=== PATIENT | male | born 1955 | race Caucasian/White ===

== ENCOUNTER 2018-04-25 20:01 | Emergency (ER) | payer BC ==
[2018-04-25 20:12] VITALS: BP 134/82; PULSE 70; TEMP 98.3; BMI 25.7
--- NOTE | 2018-04-25 21:08 | PDOC ---
History of Present Illness - History of Present Illness Initial Comments: Patient is a 62 year old male with no significant PMHx states that he was cutting zucchini with a mandolin and sliced off the tip of right thumb. Patient unsure of last tetanus. Allergies: penicillins ROS: General: No fevers or chills, no weakness, no weight loss HEENT: No change in vision. No sore throat, No ear pain Cardiovascular: No chest pain or shortness of breath Respiratory:No cough, or wheezing. Gastrointestinal: No nausea, vomiting, diarrhea or constipation, No rectal bleeding Genitourinary: No dysuria, hematuria, or frequency Musculoskeletal: No joint or muscle pain or swelling Neurologic: No headache, vertigo, dizziness or loss of consciousness Psychiatric: No depression Skin: + right thumb laceration. Endocrine: No increased thirst or abnormal weight change Allergic: No skin or latex allergy All other systems reviewed and normal PE: GENERAL: The patient is awake, alert, and fully oriented, in no acute distress. HEAD: Normal with no signs of trauma. EYES: Pupils equal, round and reactive to light, extraocular movements intact, sclera anicteric, conjunctiva clear. EXTREMITIES: Normal range of motion, no edema. NEUROLOGICAL: Normal speech, normal gait. PSYCH: Normal mood, normal affect. SKIN: Total avulsion of the lateral aspect of the right thumb. Size of avulsion is approximately .5 by 1 cm with active bleeding. <Ella Velasquez - Last Filed: 04/25/18 21:14> - General History Source: Patient Exam Limitations: No Limitations - History of Present Illness Initial Comments: A portion of this note was documented by scribe services under my direction. I have reviewed the details of the note, within reason, and agree with the documentation with the following case summary and management plan written by me. Patient treated in the ED. Nursing notes are reviewed and incorporated into the medical decision-making. Vital signs reviewed. 04/25/18 21:35 Assessment and plan: This is a 62-year-old male who cut the lateral portion of the tip of his thumb off using a mandolin. Patient's tetanus was updated The laceration was not able to be sutured due to the sizable it. She discharged home will follow-up with his primary care doctor Procedure note treatment of avulsion laceration of thumb Patient's thumb was turning get it to stop the bleeding then Dermabond was applied to the laceration and Surgicel applied over the Dermabond sterile dressing was placed over that and secured with tape and a bulky finger dressing was placed over that. Patient discharged <Dian Evans I - Last Filed: 04/25/18 21:37> - General Chief Complaint: Injury Stated Complaint: TIP OFF RT THUMB Time Seen by Provider: 04/25/18 20:05 Past History <Ella Velasquez - Last Filed: 04/25/18 21:14> - Past Medical History COPD: No - Suicide/Smoking/Psychosocial Hx Smoking History: Never smoked Have you smoked in the past 12 months: No Information on smoking cessation initiated: No Hx Alcohol Use: No Drug/Substance Use Hx: No <Dian Evans I - Last Filed: 04/25/18 21:37> - Past Medical History Allergies/Adverse Reactions: Allergies Allergy/AdvReac Type Severity Reaction Status Date / Time Penicillins Allergy Unknown Verified 04/25/18 20:02 Home Medications: Ambulatory Orders NK [No Known Home Medication] 04/25/18 Review of Systems - Review of Systems Comments:: 04/25/18 21:14 see HPI <Ella Velasquez - Last Filed: 04/25/18 21:14> *Physical Exam - Vital Signs Last Vital Signs Temp Pulse Resp BP Pulse Ox 98.3 F 70 20 134/82 100 04/25/18 20:02 04/25/18 20:02 04/25/18 20:02 04/25/18 20:02 04/25/18 20:02 - Physical Exam Comments: 04/25/18 21:15 see HPI <Ella Velasquez - Last Filed: 04/25/18 21:14> - Vital Signs Last Vital Signs Temp Pulse Resp BP Pulse Ox 98.3 F 70 20 134/82 100 04/25/18 20:02 04/25/18 20:02 04/25/18 20:02 04/25/18 20:02 04/25/18 20:02 <Dian Evans I - Last Filed: 04/25/18 21:37> Moderate Sedation - Procedure Monitoring Vital Signs: Procedure Monitoring Vital Signs Temperature 98.3 F 04/25/18 20:02 Pulse Rate 70 04/25/18 20:02 Respiratory Rate 20 04/25/18 20:02 Blood Pressure 134/82 04/25/18 20:02 O2 Sat by Pulse Oximetry (%) 100 04/25/18 20:02 <Ella Velasquez - Last Filed: 04/25/18 21:14> - Procedure Monitoring Vital Signs: Procedure Monitoring Vital Signs Temperature 98.3 F 04/25/18 20:02 Pulse Rate 70 04/25/18 20:02 Respiratory Rate 20 04/25/18 20:02 Blood Pressure 134/82 04/25/18 20:02 O2 Sat by Pulse Oximetry (%) 100 04/25/18 20:02 <Dian Evans I - Last Filed: 04/25/18 21:37> *DC/Admit/Observation/Transfer - Attestations Scribe Attestion: 04/25/18 21:15 Documentation prepared by Ella Velasquez, acting as medical planner for Dian Evans MD. <Ella Velasquez - Last Filed: 04/25/18 21:14> <Dian Evans I - Last Filed: 04/25/18 21:37> Diagnosis at time of Disposition: Avulsion of finger tip Qualifiers: Encounter type: initial encounter Qualified Code(s): S61.209A - Unspecified open wound of unspecified finger without damage to nail, initial encounter - Discharge Dispostion Disposition: HOME Condition at time of disposition: Stable - Patient Instructions Additional Instructions: Follow the discharge instructions that the doctor discussed with you keep it dry for 72 hours. You can remove the dressing tomorrow evening but do not remove the last little bit of dressing that is stuck to the wound. After 3-4 days U can start putting bacitracin on the wound and to start softening the dressing that is stuck to it. Return to the emergency department immediately with ANY new, persistent or worsening symptoms. Continue any medications as previously prescribed by your physician. You should follow up with your primary doctor as soon as possible regarding today's emergency department visit. . Please make sure your doctor reviews the results of your emergency evaluation. Thank you for coming to the Emergency Department today for your care. It was a pleasure to see you today. Please note that your evaluation is INCOMPLETE until you follow-up with your doctor.
[2018-04-25] MEDS ORDERED: DIPHTH,PERTUSS(ACELL),TET 0.5 ML DISP.SYRIN IM ONE ×2 (21:18→21:19)
== END 2018-04-25 21:26 | disposition home or self-care (01) ==
LOC: FER 20:01
PROC: 3E0234Z Introduction of Serum, Toxoid and Vaccine into Muscle, Percutaneous Approach (ICD-10-PCS; principal; 2018-04-25)
DX: S61.011A Laceration without foreign body of right thumb without damage to nail, initial encounter (principal); W27.4XXA Contact with kitchen utensil, initial encounter; Y93.G1 Activity, food preparation and clean up; Y92.89 Other specified places as the place of occurrence of the external cause
CPT/HCPCS: 90715; 99281-25

== ENCOUNTER 2019-01-08 18:22 | Inpatient (IN) | payer BC ==
--- NOTE | 2019-01-08 18:28 | PDOC ---
Rapid Medical Evaluation Time Seen by Provider: 01/08/19 18:27 Medical Evaluation: Allergies Allergy/AdvReac Type Severity Reaction Status Date / Time Penicillins Allergy Unknown Verified 04/25/18 20:02 01/08/19 18:27 I have performed a brief in-person evaluation of this patient. The patient presents with a chief complaint of: food stuck in esophagus Pertinent physical exam findings:stable and in NAD, non-focal I have ordered the following: provider to determine The patient will proceed to the ED for further evaluation.
--- NOTE | 2019-01-08 19:50 | PDOC ---
History of Present Illness - General Chief Complaint: Choking Sensation Stated Complaint: FOOD STUCK IN THROAT Time Seen by Provider: 01/08/19 18:27 - History of Present Illness Initial Comments: HPI: 63yo M with no reported PMH presenting with a sensation that food is stuck in this esophagus. Patient states he had pork chops and potatoes last night (about 24 hours ago) and thereafter felt this sensation. Has not been able to tolerate eating or drinking without vomiting. Has been able to control saliva secretions. Has had this sensation before: six year ago, required an emergent endoscopy. Also felt this "a couple times in the past six months," however the food would usually pass on its own or would be vomited up. Presenting now because "this has gone on too long." Does not currently follow with a GI doctor. Does not know if he has esophageal pathology. His mother had this problem and had to have a procedure done. No nausea right now. Denies fevers or chills. PCP: none ROS: Constitutional: no fever, no chills HEENT: no throat pain, +dysphagia Cardiovascular: no chest pain, no palpitations Respiratory: no cough, no shortness of breath Gastrointestinal: no abdominal pain, +vomiting Genitourinary: no dysuria, no hematuria Musculoskeletal: no myalgia, no arthralgia Skin: no rash, no itching Neurologic: no headache, no weakness PE: General: Awake, alert, and fully oriented, in no acute distress Head: No signs of trauma Eyes: EOMI, sclera anicteric ENT: Moist mucus membranes Neck: Normal ROM, supple Lungs: Lungs clear, Normal breath sounds Cardio: Regular rhythm, S1 and S2 present Abdomen: Soft, nontender. No guarding, no rebound, no masses Extremities: Normal range of motion, Distal pulses present SKIN: Warm, Dry, normal turgor Neurologic: Cranial nerves II through XII grossly intact. Normal speech ED Course/MDM: DDX including but not limited to food impaction, globus sensation, esophagitis, esophageal stricture, achalasia Pre-op labs GI consult Glucagon Fluids Patient declined pain medication as he is not in pain 01/08/19 19:[address] Fausto Soriano, GI, who recommends admission and endoscopy for patient tomorrow. Unsure of when the procedure will take place as Dr. Soriano will contact the on-call physician. Patient reluctant to stay overnight in the hospital. Will discuss admission again in about ten minutes after patient has taken some time to think about it. 01/08/19 21:08 Patient amenable to transfer as long as the procedure will be performed yaneth kaur will contact the transfer center 01/08/19 21:29 Discussed case, Dr. Powers, GI fellow at [place] No indication for emergent endoscopy; she will talk to her attending and notify the transfer center Patient is of sound mind and has capacity to make decisions. Benefits/risks explained to patient and he voiced understanding. Patient decided to refuse transfer Transfer cancelled 01/08/19 21:[address] Woods who accepted patient for admission under Dr. Carroll 01/08/19 22:08 EKG, rate 63, QTc 478, RBBB, twi in inferior and lateral distribution (no prior EKGs available) Chest: Chest pain. Possible foreign body 2 views of the chest reveal clear well aerated lungs, old apical pleural thickening, normal mediastinum and sharp angles. The bones and soft tissues are intact. Since 05/27/2009 there is no change of an adverse nature. There is no sign of infiltrate, failure or pneumothorax. A foreign body is not seen. Correlation recommended. Impression : No acute chest pathology. Past History - Past Medical History Allergies/Adverse Reactions: Allergies Allergy/AdvReac Type Severity Reaction Status Date / Time Penicillins Allergy Unknown Verified 01/08/19 18:29 Home Medications: Ambulatory Orders NK [No Known Home Medication] 04/25/18 COPD: No - Psycho Social/Smoking Cessation Hx Smoking History: Never smoked Have you smoked in the past 12 months: No Hx Alcohol Use: No Drug/Substance Use Hx: No *Physical Exam - Vital Signs Last Vital Signs Temp Pulse Resp BP Pulse Ox 98 F 78 18 133/91 98 01/08/19 18:26 01/08/19 18:26 01/08/19 18:26 01/08/19 18:26 01/08/19 18:26 ED Treatment Course - LABORATORY CBC & Chemistry Diagram: 01/09/19 08:00 01/09/19 08:00 Discharge - Discharge Information Problems reviewed: Yes Clinical Impression/Diagnosis: Food impaction of esophagus Condition: Improved - Admission Yes - Follow up/Referral - Patient Discharge Instructions - Post Discharge Activity
--- NOTE | 2019-01-08 19:58 | PDOC ---
Attending Attestation - Resident Resident Name: Sravani Baker - ED Attending Attestation I have performed the following: I have examined & evaluated the patient, The case was reviewed & discussed with the resident, I agree w/resident's findings & plan - HPI HPI: 01/08/19 21:44 see resident hpi - Physicial Exam PE: 01/08/19 21:44 agree with resident exam - Medical Decision Making 01/08/19 21:45 63-year-old male with foreign body sensation after eating pork chops unable to tolerate liquids Patient has some improvement after glucagon GI in-house contacted who agreed to see patient for endoscopy in the morning Call being placed to [facility] to attempt arrangements for endoscopy tonight If not patient would prefer to stay in-house EKG shows a sinus rhythm at 65 bpm with a right bundle branch block There are ST/T wave abnormalities in V3 through V6, possibly related to conduction delay No old is available Troponin added on as well
[2019-01-08] MEDS ORDERED: SODIUM CHLORIDE 1,000 ML IV STA (20:16)
[2019-01-08] MEDS ORDERED: GLUCAGON 1 MG KIT IVPUSH ONE (20:17)
[2019-01-08 20:41] LABS: BASO % 0.4 % (0-2.0); EOS % 3.9 % (0-4.5); HEMATOCRIT 48.3 % (35.4-49); HEMOGLOBIN 15.8 GM/dL (11.7-16.9); LYMPH % 27.1 % (8-40); MCH 31.6 pg (25.7-33.7); MCHC 32.8 g/dl (32.0-35.9); MEAN CELL VOLUME 96.4 fl (80-96); MEAN PLT VOLUME 9.6 fl (7.5-11.1); MONO % 8.6 % (3.8-10.2); PLATELET COUNT 175 K/MM3 (134-434); RBC 5.01 M/mm3 (4.00-5.60); RDW 13.1 % (11.9-15.9); WHITE BLOOD COUNT 7.6 K/mm3 (4.0-10.0)
[2019-01-08] MEDS ORDERED: GlUCAGON HUMAN RECOMBINANT 1 MG/VIAL ONE (21:04)
[2019-01-08 21:05] LABS: ALBUMIN 3.9 g/dl (3.4-5.0); ALK PHOS 67 U/L (45-117); ANION GAP 6 MMOL/L (8-16); BILIRUBIN,TOTAL 1.1 mg/dL (0.2-1); BLOOD UREA NITROGEN 12.9 mg/dL (7-18); CALCIUM 9.2 mg/dL (8.5-10.1); CHLORIDE 109 mmol/L (98-107); CO2 27 mmol/L (21-32); GLUCOSE,RANDOM 70 mg/dL (74-106); POTASSIUM 4.1 mmol/L (3.5-5.1); SGOT/AST 22 U/L (15-37); SGPT/ALT 33 U/L (13-61); SODIUM 142 mmol/L (136-145)
[2019-01-08 21:08] LABS: INR 0.97 (0.83-1.09); PROTHROMBIN TIME (PATIENT) 11.5 SEC (9.7-13.0)
[2019-01-08 21:11] LABS: ACTIVATED PTT 35.2 SECONDS (25.2-36.5)
--- NOTE | 2019-01-08 22:26 | HP ---
CHIEF COMPLAINT: Inability to swallow PCP: None HISTORY OF PRESENT ILLNESS: 63 y/o male with no reported PMH c/o food being stuck in his throat. Pt states that yesterday evening (07 Jan 2019) he was eating rapidly, chewing poorly/ infrequently, and swallowed a large amount of food at once. He did not choke but had the sensation of incomplete swallowing. He attempted heaving and expelled some masticated food but that sensation of stuck food persisted. He is able to tolerated some liquids but experiences an incomplete swallow of liquids as well. 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 Similar occurrences take place during the year but self-resolve. He denies CP, SOB, NVFD. ER course was notable for: (1) EKG significant for abnormal T waves (2) Case discussed with Dr. Fausto Soriano, GI, whom recommends admission and endoscopy for patient tomorrow (3) Glucagon administered Recent Travel: Denies PAST MEDICAL HISTORY: Denies PAST SURGICAL HISTORY: Denies Family history: Father Hep C, Mother with similar dysphagia symptoms Social History: Smoking: denies Alcohol: social Drugs: denies Allergies Penicillins Allergy (Unknown, Verified 01/08/19 18:29) anaphylaxis Seasonal allergies HOME MEDICATIONS: Home Medications Medication Instructions Recorded NK [No Known Home Medication] 04/25/18 REVIEW OF SYSTEMS CONSTITUTIONAL: Absent: fever, chills, diaphoresis, generalized weakness, malaise, loss of appetite, weight change HEENT: Absent: rhinorrhea, nasal congestion, throat pain, throat swelling, difficulty swallowing, mouth swelling, ear pain, eye pain, visual changes CARDIOVASCULAR: Absent: chest pain, syncope, palpitations, irregular heart rate, lightheadedness , peripheral edema RESPIRATORY: Absent: cough, shortness of breath, dyspnea with exertion, orthopnea, wheezing, stridor, hemoptysis GASTROINTESTINAL: Absent: abdominal pain, abdominal distension, nausea, vomiting, diarrhea, constipation, melena, hematochezia GENITOURINARY: Absent: dysuria, frequency, urgency, hesitancy, hematuria, flank pain, genital pain MUSCULOSKELETAL: Absent: myalgia, arthralgia, joint swelling, back pain, neck pain SKIN: Absent: rash, itching, pallor HEMATOLOGIC/IMMUNOLOGIC: Absent: easy bleeding, easy bruising, lymphadenopathy, frequent infections ENDOCRINE: Absent: unexplained weight gain, unexplained weight loss, heat intolerance, cold intolerance NEUROLOGIC: Absent: headache, focal weakness or paresthesias, dizziness, unsteady gait, seizure, mental status changes, bladder or bowel incontinence PSYCHIATRIC: Absent: anxiety, depression, suicidal or homicidal ideation, hallucinations. PHYSICAL EXAMINATION Vital Signs - 24 hr 01/08/19 18:26 Temperature 98 F Pulse Rate 78 Respiratory 18 Rate Blood Pressure 133/91 O2 Sat by Pulse 98 Oximetry (%) GENERAL: AOx3, in no acute distress. HEAD: NCAT EYES: KAYODE, EOMI, conjunctiva clear. ENT: Normal tongue morphology, no food in oral cavity, no swellings/masses/ obstructions. Ears normal, nares patent, oropharynx clear without exudates. Moist mucous membranes. NECK: Normal range of motion, supple without lymphadenopathy, JVD, or masses. LUNGS: CTAB. No wheezes, and no crackles. No accessory muscle use. HEART: RRR s1 s2 ABDOMEN: Soft, BS present in all 4 quadrants, non-distended, no JVD, MUSCULOSKELETAL: No bony deformities or tenderness. No CVA tenderness. UPPER EXTREMITIES: 2+ pulses, warm, well-perfused. No cyanosis. No clubbing. No peripheral edema. LOWER EXTREMITIES: 2+ pulses, warm, well-perfused. No calf tenderness. No peripheral edema. NEUROLOGICAL: Cranial nerves II-XII intact. Normal speech. Gait not appreciated. PSYCHIATRIC: Cooperative. Good eye contact. Appropriate mood and affect. SKIN: Warm, dry, normal turgor, no rashes or lesions noted, normal capillary refill. Laboratory Results - last 24 hr 01/08/19 01/08/19 01/08/19 20:30 20:30 20:30 WBC 7.6 RBC 5.01 Hgb 15.8 Hct 48.3 MCV 96.4 H MCH 31.6 MCHC 32.8 RDW 13.1 Plt Count 175 MPV 9.6 Absolute Neuts (auto) 4.6 Neutrophils % 60.0 Lymphocytes % 27.1 Monocytes % 8.6 Eosinophils % 3.9 Basophils % 0.4 Nucleated RBC % 0 PT with INR 11.50 INR 0.97 PTT (Actin FS) 35.2 Sodium 142 Potassium 4.1 Chloride 109 H Carbon Dioxide 27 Anion Gap 6 L BUN 12.9 Creatinine 1.0 Est GFR (CKD-EPI)AfAm 93.08 Est GFR (CKD-EPI)NonAf 80.31 Random Glucose 70 L Calcium 9.2 Total Bilirubin 1.1 H AST 22 ALT 33 Alkaline Phosphatase 67 Creatine Kinase 113 Troponin I < 0.02 Total Protein 7.0 Albumin 3.9 ASSESSMENT/PLAN: 63 y/o male with no reported PMH c/o food being stuck in his throat 2/2 mechanical impaction/poor mastication. A similar instance occurred in 2011, which resulted in need for disimpaction. # Food bolus impaction - Hydrate D5W - NPO - Follow GI recommendations (possible manometry/motility studies) # EKG abnormalities - Asymptomatic - T wave abnormalities - Repeat EKG in AM - Trop neg x1, f/u second trop #F/E/N - NS - Cont. to monitor - Regular diet # DVT prophylaxis - Heparin SQ # Disposition - Admit to med/surg Curt Campbell MD Visit type - Emergency Visit Emergency Visit: Yes ED Registration Date: 01/08/19 Care time: The patient presented to the Emergency Department on the above date and was hospitalized for further evaluation of their emergent condition. - New Patient This patient is new to me today: Yes Date on this admission: 01/09/19 - Critical Care Critical Care patient: No ATTENDING PHYSICIAN STATEMENT I saw and evaluated the patient. I reviewed the resident's note and discussed the case with the resident. I agree with the resident's findings and plan as documented. SUBJECTIVE: OBJECTIVE: ASSESSMENT AND PLAN:
[2019-01-08] MEDS: DEXTROSE 5%-NORMAL SALINE 1,000 ML IV SCH (22:59)
[2019-01-09] MEDS: HEPARIN NA (PORCINE) 5,000 UNITS/ML 1ML VIAL SQ SCH ×3 (00:05→15:37)
[2019-01-09 00:13] LABS: BILIRUBIN,DIRECT 0.2 mg/dL (0.0-0.2)
--- NOTE | 2019-01-09 00:49 | PN ---
Teaching Attending Note Name of Resident: Curt Campbell ATTENDING PHYSICIAN STATEMENT I saw and evaluated the patient. I reviewed the resident's note and discussed the case with the resident. I agree with the resident's findings and plan as documented. SUBJECTIVE: 63-year-old man with foreign body sensation after eating pork chops About 24 hours prior to presentation, unable to tolerate liquids, suspect food particle stuck in the esophagus. GI was contacted and agreed for endoscopy in the a.m. There is no need for emergent endoscopy overnight. Patient reported similar episode occurred 7 years ago patient needed EGD performed at that time for food disimpaction. Since then he reports food stuck in his esophagus about twice a year however did not repeat EGDs. OBJECTIVE: Last Vital Signs Temp Pulse Resp BP Pulse Ox 98.7 F 59 L 18 141/87 98 01/08/19 23:57 01/08/19 23:57 01/08/19 23:57 01/08/19 23:57 01/08/19 23:19 GENERAL: Well developed, well nourished. Awake and alert. No acute distress. HEENT: Normocephalic, atraumatic. PERRLA, EOMI. No conjunctival pallor. Sclera are non- icteric. Moist mucous membranes. Oropharynx is clear. NECK: Supple. Full ROM. No JVD. Carotid pulses 2+ and symmetric, without bruits. No thyromegaly. No lymphadenopathy. CARDIOVASCULAR: Regular rate and rhythm. No murmurs, rubs, or gallops. Distal pulses are 2+ and symmetric. PULMONARY: No evidence of respiratory distress. Lungs clear to auscultation bilaterally. No wheezing, rales or rhonchi. ABDOMINAL: Soft. Non-tender. Non-distended. No rebound or guarding. No organomegaly. Normoactive bowel sounds. MUSCULOSKELETAL Normal range of motion at all joints. No bony deformities or tenderness. No CVA tenderness. EXTREMITIES: No cyanosis. No clubbing. No edema. No calf tenderness. SKIN: Warm and dry. Normal capillary refill. No rashes. No jaundice. PSYCHIATRIC: Cooperative. Good eye contact. Appropriate mood and affect. Abnormal Lab Results 01/08/19 01/08/19 20:30 20:30 MCV 96.4 H Chloride 109 H Anion Gap 6 L Random Glucose 70 L Total Bilirubin 1.1 H Imaging reviewed ASSESSMENT AND PLAN: Suspected esophageal food impaction. Do not suspect perforation of esophagus at this time. Patient is clinically and hemodynamically stable at this time. GI contacted and aware. Admit to [facility] follow-up IV fluid hydration Monitor vital signs closely Heparin subcutaneously for DVT prophylaxis
[2019-01-09 03:25] VITALS: BMI 26.0
[2019-01-09] MEDS: DEXTROSE 5%-NORMAL SALINE 1,000 ML IV SCH (06:23)
[2019-01-09 09:09] LABS: HEMOGLOBIN 14.8 GM/dL (11.7-16.9); MCH 32.5 pg (25.7-33.7); MCHC 33.6 g/dl (32.0-35.9); MEAN CELL VOLUME 96.7 fl (80-96); MEAN PLT VOLUME 10.1 fl (7.5-11.1); PLATELET COUNT 163 K/MM3 (134-434); RBC 4.56 M/mm3 (4.00-5.60); RDW 13.4 % (11.9-15.9); WHITE BLOOD COUNT 5.1 K/mm3 (4.0-10.0)
[2019-01-09 09:39] LABS: CALCIUM 8.3 mg/dL (8.5-10.1); CREATININE 0.9 mg/dL (0.55-1.3); MAGNESIUM 2.7 mg/dL (1.8-2.4); PHOSPHOROUS 2.6 mg/dL (2.5-4.9); POTASSIUM 3.9 mmol/L (3.5-5.1)
--- NOTE | 2019-01-09 10:25 | CONSULT ---
Admitting History and Physical - Primary Care Physician PCP: Dmitriy Lemos - Admission History of Present Illness: 63-year-old man with foreign body sensation after eating potatoe ,was unable to tolerate liquids, suspect food particle stuck in the esophagus. Patient reported similar episode occurred 7 years ago patient needed EGD performed at that time for food disimpaction at [facility]. Since then he reports food stuck in his esophagus about twice a year however did not repeat EGDs. Pt was NPO, pending endoscopy today. However, pt felt that the impaction passed and he was able to tolerate liquids for breakfast. Selected Entries 01/08/19 01/08/19 01/09/19 18:26 23:57 02:00 Temperature 98 F 98.7 F 98.3 F 01/09/19 06:30 Temperature 98.5 F Laboratory Tests 01/08/19 01/09/19 20:30 08:00 WBC 7.6 5.1 Pt reports food impactions have been more frequent, every 3 months, usually when he rushes. He denies reflux/smoking/drinks socially. He drinks 3 coffees daily, no soda, occasional tomatoes, spicy foods but feels he can eat anything without reflux. He has dinner at 7, and stays upright until bedtime at 11. History Source: Patient, Medical Record Limitations to Obtaining History: No Limitations - Smoking History Smoking history: Never smoked Have you smoked in the past 12 months: No - Alcohol/Substance Use Hx Alcohol Use: No History - Admission Reason For Visit: FOOD INPACTION OF ESOPHAGUS, DYSPHAGIA - Diagnostics X-ray: Report Reviewed - General Mental Status: Alert and Oriented, Awake and Alert, Able to Follow Commands Attention: Intact Ability to Follow Directions: Excellent Head/Neck Control: WFL - Hearing Hearing: Normal Speech Evaluation - Communication Primary Language: GREEK Communication: Yes: Within Normal Limits Oral Expression Ability: Yes: No Impairment - Speech Production Able to Make Needs Known: Yes: WNL Intelligibility: Yes: WNL - Speech Characteristics Voice Loudness: Normal Voice Pitch: Yes: Normal Voice Phonatory-based Quality: Yes: Normal Speech Pattern: Normal Speech Clarity: < 100% Nasal Resonance: Normal Articulation: Yes: Precise Rate of Speech: Intact - Language/Auditory Comprehension Follows: Yes: 2 Stage Simple Commands - Language/Verbal Expression Able to Respond to Simple Queries: Yes: WNL Able to Communicate Wants and Needs: Yes: WNL Functional Communication Status: Yes: WNL - Memory/Perception lobsterman Memory: Yes: WNL Short Term Memory: Yes: WNL - Swallow Evaluation/Bedside Assessment Current Nutritional Intake: Clear Liquids Oral Secretions: Yes: WFL Dentition: Yes: Adequate Facial Symmetry at Rest: Symmetrical Facial Symmetry on Retraction: Symmetrical Facial Movement: Controlled Sensation: Normal Against Resistance Opening: Normal Against Resistance Closing: Normal Pucker Lips: Normal Smile: Normal Lingual Movement: Normal, Symmetric Lingual Speed of Movement: Normal Lingual Movement Strgth Against Opposition: Normal Lingual Movement Characteristics: Normal Soft Palate Description: Normal Color, Normal Symmetry Hard Palate Description: Normal Color, Normal Symmetry Velopharyngeal Movement: Normal Laryngeal Elevation: WFL Laryngeal Movement: Able to Palpate Rate of Intake: WFL Bolus Size: WFL Labial Seal: WFL Chewing: WFL Oral Prep Time: WFL A-P Transit: WFL Pocketing: None Timing of Swallow: WFL Coughing/Throat Clear: No Change in Voice: No Recommendations - Speech Evaluation, Impression/Plan Impression: Pt with recurrent food impaction, increasing in frequency. Tolerating clear liquids at this time. r/o esophageal dysphagia- Schatzki's ring,stricture,dysmotility,eosinophilic esophagitis, pathology. - Dysphagia Impressions/Plan Dysphagia Treatment Plan: Other (educated pt on soft, moist foods, small bites, chew well, alternate with sips of liquid, GERD precautions.) Recommendations: GI Consult (f/u out pt)
--- NOTE | 2019-01-09 10:37 | EKG ---
Test Reason : Blood Pressure : / mmHG Vent. Rate : 063 BPM Atrial Rate : 063 BPM P-R Int : 180 ms QRS Dur : 140 ms QT Int : 468 ms P-R-T Axes : 042 024 -32 degrees QTc Int : 478 ms SINUS RHYTHM WITH PREMATURE ATRIAL COMPLEXES RIGHT BUNDLE BRANCH BLOCK CANNOT RULE OUT INFERIOR INFARCT , AGE UNDETERMINED T WAVE ABNORMALITY, CONSIDER LATERAL ISCHEMIA ABNORMAL ECG NO PREVIOUS ECGS AVAILABLE Confirmed by NAGA MINA, ANTWAN ([id number]) on 01/09/2019 10:36:37 AM Referred By: Confirmed By:ANTWAN NIELSON MD
--- NOTE | 2019-01-09 10:59 | CON.GI ---
Consult Consult Specialty:: Gastroenterology Referred by:: Dr. Carroll Reason for Consultation:: Food bolus - History of Present Illness History of Present Illness: 63yo male presenting with food bolus after eating piece of pork 2 days ago. Pt reports eating piece of pork on Monday evening, noted burning and sensation of food sticking in mid substernal region, attempted to regurgitate however unable. Had water and coffee the following morning however unable to tolerate prompting ED evaluation yesterday. Reports similar episode 7 years ago requiring endoscopic disimpaction. Otherwise report 2-3 episodes a year usually when eating meat, though usually regurgitates back up. Denies dysphagia to liquids, heartburn or abdominal pain. Pt received glucagon in ED. Overnight states sensation of sticking resolved. Currently feeling well, tolerating own secretions, denies chest discomfort, burning, sob or abdominal pain. Tolerated cup of water this am. - History Source History Provided By: Patient - Alcohol/Substance Use Hx Alcohol Use: No - Smoking History Smoking history: Never smoked Have you smoked in the past 12 months: No Home Medications - Allergies Allergies/Adverse Reactions: Allergies Allergy/AdvReac Type Severity Reaction Status Date / Time Penicillins Allergy Unknown Verified 01/08/19 18:29 - Home Medications Home Medications: Ambulatory Orders NK [No Known Home Medication] 04/25/18 Review of Systems - Review of Systems Constitutional: reports: No Symptoms Cardiovascular: reports: No Symptoms Respiratory: reports: No Symptoms Gastrointestinal: reports: No Symptoms Musculoskeletal: reports: No Symptoms Physical Exam-GI Vital Signs: Vital Signs Temperature 98.5 F 01/09/19 06:30 Pulse Rate 57 L 01/09/19 06:30 Respiratory Rate 18 01/09/19 06:30 Blood Pressure 114/70 01/09/19 06:30 O2 Sat by Pulse Oximetry (%) 98 01/08/19 23:19 Constitutional: Yes: Well Nourished, No Distress, Calm HENT: Yes: WNL, Atraumatic, Normocephalic Cardiovascular: Yes: WNL, Regular Rate and Rhythm Respiratory: Yes: WNL, Regular, CTA Bilaterally ...Palpate: Yes: Other (Abd soft, nt, nd) Labs: CBC, BMP 01/09/19 08:00 01/09/19 08:00 INR, PTT INR 0.97 (0.83-1.09) 01/08/19 20:30 Imaging - Results Chest X-ray: Report Reviewed, Image Reviewed Problem List - Problems (1) Food impaction of esophagus Assessment/Plan: 63yo male presenting with suspected food bolus impaction after eating piece of pork 2 days ago with burning discomfort and sensation of food sticking, now resolved. Speaking in full sentences, tolerating own secretions and water this am. -No indication for emergent EGD currently as food bolus appears to have passed -Discussed elective EGD to further evaluate including r/o stricture, ring, eosinophilic esophagitis. Pt currently anxious to leave and prefers outpt follow up. -Resume clear liquid diet this am advance as tolerated -Strongly advised to chew carefully and take small bites -Recommend outpt GI follow up in 1-2 weeks Discussed with medicine resident. Please recall GI if further questions in the interim. Code(s): T18.128A - FOOD IN ESOPHAGUS CAUSING OTHER INJURY, INITIAL ENCOUNTER Qualifiers: Encounter type: initial encounter Qualified Code(s): T18.128A - Food in esophagus causing other injury, initial encounter
--- NOTE | 2019-01-09 13:53 | PN ---
Teaching Attending Note Name of Resident: Subhash Berman ATTENDING PHYSICIAN STATEMENT I saw and evaluated the patient. I reviewed the resident's note and discussed the case with the resident. I agree with the resident's findings and plan as documented. SUBJECTIVE: Pain resolved, tolerating clear liquid diet - no nausea/vomiting/ regurgitation. No abdominal pain/diarrhea. No fever/chills. OBJECTIVE: Afebrile, Hemodynamically Stable. Last Vital Signs Temp Pulse Resp BP Pulse Ox 98.5 F 57 L 18 139/87 97 01/09/19 09:00 01/09/19 09:00 01/09/19 09:00 01/09/19 09:00 01/09/19 09:00 HEENT - Atraumatic, Normocephalic Heart - S1 S2, RRR Lungs -clear to auscultation. Abdomen - Soft, non-tender. Bowel Sounds normal. Extremities -no edema, no calf tenderness Laboratory Results - last 24 hr 01/08/19 01/08/19 01/08/19 20:30 20:30 20:30 WBC 7.6 RBC 5.01 Hgb 15.8 Hct 48.3 MCV 96.4 H MCH 31.6 MCHC 32.8 RDW 13.1 Plt Count 175 MPV 9.6 Absolute Neuts (auto) 4.6 Neutrophils % 60.0 Lymphocytes % 27.1 Monocytes % 8.6 Eosinophils % 3.9 Basophils % 0.4 Nucleated RBC % 0 PT with INR 11.50 INR 0.97 PTT (Actin FS) 35.2 Sodium 142 Potassium 4.1 Chloride 109 H Carbon Dioxide 27 Anion Gap 6 L BUN 12.9 Creatinine 1.0 Est GFR (CKD-EPI)AfAm 93.08 Est GFR (CKD-EPI)NonAf 80.31 Random Glucose 70 L Calcium 9.2 Phosphorus Magnesium Total Bilirubin 1.1 H Direct Bilirubin 0.2 AST 22 ALT 33 Alkaline Phosphatase 67 Creatine Kinase 113 Troponin I < 0.02 Total Protein 7.0 Albumin 3.9 01/09/19 01/09/19 01/09/19 08:00 08:00 08:00 WBC 5.1 RBC 4.56 Hgb 14.8 Hct 44.0 MCV 96.7 H MCH 32.5 MCHC 33.6 RDW 13.4 Plt Count 163 MPV 10.1 Absolute Neuts (auto) Neutrophils % Lymphocytes % Monocytes % Eosinophils % Basophils % Nucleated RBC % PT with INR INR PTT (Actin FS) Sodium 143 Potassium 3.9 Chloride 112 H Carbon Dioxide 24 Anion Gap 7 L BUN 13.0 Creatinine 0.9 Est GFR (CKD-EPI)AfAm 105.72 Est GFR (CKD-EPI)NonAf 91.22 Random Glucose 79 Calcium 8.3 L Phosphorus 2.6 Magnesium 2.7 H Total Bilirubin Direct Bilirubin AST ALT Alkaline Phosphatase Creatine Kinase Troponin I < 0.02 Total Protein Albumin Current Medications Generic Name Dose Route Start Last Admin Trade Name Freq PRN Reason Stop Dose Admin Heparin Sodium (Porcine) 5,000 unit 01/08/19 22:15 01/09/19 05:33 Heparin - SQ Not Given TID MATTHEW Dextrose/Sodium Chloride 1,000 mls @ 83 mls/hr 01/08/19 22:15 01/09/19 06:23 D5-Ns - IV 83 mls/hr ASDIR MATTHEW Administration Home Medications Medication Instructions Recorded NK [No Known Home Medication] 04/25/18 ASSESSMENT AND PLAN: 63 year old male with history of esophageal food impaction requiring EGD and dilatation, presents with globus sensation after eating pork and potatoes. progressed to inability to swallow even liquids. Symptoms now resolved. 1. Esophageal Food Impaction - resolved. Tolerating clears now. Evaluated by GI - for advancement of diet and out-patient GI referral for EGD in 1-2 weeks. Cleared for discharge by GI with out-patient follow up.
--- NOTE | 2019-01-09 15:06 | EKG ---
Test Reason : Blood Pressure : / mmHG Vent. Rate : 060 BPM Atrial Rate : 060 BPM P-R Int : 170 ms QRS Dur : 136 ms QT Int : 470 ms P-R-T Axes : 030 -03 005 degrees QTc Int : 470 ms NORMAL SINUS RHYTHM RIGHT BUNDLE BRANCH BLOCK ABNORMAL ECG WHEN COMPARED WITH ECG OF 09-JAN-2019 10:22, T WAVE INVERSION NO LONGER EVIDENT IN INFERIOR LEADS NONSPECIFIC T WAVE ABNORMALITY NO LONGER EVIDENT IN LATERAL LEADS Confirmed by ANTWAN NIELSON MD ([id number]) on 01/09/2019 3:06:04 PM [facility] Confirmed By:ANTWAN NIELSON MD
[2019-01-09 15:58] VITALS: BP 127/85; PULSE 65; TEMP 98.8
--- NOTE | 2019-01-09 16:16 | DS ---
Physical Exam: SUBJECTIVE: Patient seen and examined at the bedside. Patient stated that he felt better, stated that the sensation of food being stuck in his esophagus improved and he was able to tolerate liquids well. Denied aspiration of gastric contents, halitosis, reflux symptoms. Denied chest pain, sob, abdominal pain, n/ v/c/d, fever, chills. Was eager to be discharged. Today spoke with GI and was recommended to follow up outpatient as there is no emergent need for endoscopy. OBJECTIVE: Vital Signs Period Temp Pulse Resp BP Sys/Avalos Pulse Ox Last 24 Hr 98 F-98.8 F 57-78 18-18 114-152/70-95 97-98 PHYSICAL EXAM GENERAL: AOx3, in no acute distress. HEAD: NCAT EYES: KAYODE, EOMI, conjunctiva clear. ENT: Normal tongue morphology, no food in oral cavity, no swellings/masses/ obstructions.Oropharynx clear without exudates. Moist mucous membranes. NECK: Normal range of motion, supple without lymphadenopathy, JVD, or masses. LUNGS: Clear to auscultation bilaterally. No wheezes, and no crackles. No accessory muscle use. HEART: Regular rate and rhythm, no murmurs or rubs. ABDOMEN: Soft, non-tender, BS present in all 4 quadrants, non-distended MUSCULOSKELETAL: No bony deformities or tenderness. UPPER EXTREMITIES: 2+ pulses, warm, well-perfused. No cyanosis. No clubbing. No peripheral edema. LOWER EXTREMITIES: 2+ pulses, warm, well-perfused. No calf tenderness. No peripheral edema. NEUROLOGICAL: Cranial nerves II-XII intact. 5/5 muscle strength bilaterally upper and lower extremities. PSYCHIATRIC: Cooperative. Good eye contact. Appropriate mood and affect. SKIN: Warm, dry, normal turgor, no rashes or lesions noted, normal capillary refill. LABS Laboratory Results - last 24 hr 01/08/19 01/08/19 01/08/19 20:30 20:30 20:30 WBC 7.6 RBC 5.01 Hgb 15.8 Hct 48.3 MCV 96.4 H MCH 31.6 MCHC 32.8 RDW 13.1 Plt Count 175 MPV 9.6 Absolute Neuts (auto) 4.6 Neutrophils % 60.0 Lymphocytes % 27.1 Monocytes % 8.6 Eosinophils % 3.9 Basophils % 0.4 Nucleated RBC % 0 PT with INR 11.50 INR 0.97 PTT (Actin FS) 35.2 Sodium 142 Potassium 4.1 Chloride 109 H Carbon Dioxide 27 Anion Gap 6 L BUN 12.9 Creatinine 1.0 Est GFR (CKD-EPI)AfAm 93.08 Est GFR (CKD-EPI)NonAf 80.31 Random Glucose 70 L Calcium 9.2 Phosphorus Magnesium Total Bilirubin 1.1 H Direct Bilirubin 0.2 AST 22 ALT 33 Alkaline Phosphatase 67 Creatine Kinase 113 Troponin I < 0.02 Total Protein 7.0 Albumin 3.9 01/09/19 01/09/19 01/09/19 08:00 08:00 08:00 WBC 5.1 RBC 4.56 Hgb 14.8 Hct 44.0 MCV 96.7 H MCH 32.5 MCHC 33.6 RDW 13.4 Plt Count 163 MPV 10.1 Absolute Neuts (auto) Neutrophils % Lymphocytes % Monocytes % Eosinophils % Basophils % Nucleated RBC % PT with INR INR PTT (Actin FS) Sodium 143 Potassium 3.9 Chloride 112 H Carbon Dioxide 24 Anion Gap 7 L BUN 13.0 Creatinine 0.9 Est GFR (CKD-EPI)AfAm 105.72 Est GFR (CKD-EPI)NonAf 91.22 Random Glucose 79 Calcium 8.3 L Phosphorus 2.6 Magnesium 2.7 H Total Bilirubin Direct Bilirubin AST ALT Alkaline Phosphatase Creatine Kinase Troponin I < 0.02 Total Protein Albumin HOSPITAL COURSE: Miguel Kang is a 63 year old male with no significant past medical history who presented with complaints of food stuck in his throat. The patient noted that he has had sensations like this in the past most severely 7 years prior for which he required an endoscopy. Patient was unable to tolerate liquids well. He was given Glucagon and IV hydration on the night of admission. Patient improved overnight and was able to tolerate clear liquid diet and had a good swallow. Patient was seen by GI and was told to follow up outpatient as there is no emergent need for endoscopy. Patient was seen by speech and swallow therapist. Patient was told to follow a soft diet, chew food thoroughly, eat slowly, avoid tough foods, alternate food and liquids to minimize risk of future episodes. While patient was hospitalized, he had an EKG performed that showed a RBBB, T wave abnormalities, and prolonged QTc. Patient was advised to follow up with a latex ribbon machine operator outpatient. Patient was discharged in stable condition and told to follow up with a primary care provider. Information for a primary care provider was given as patient endorsed he did not currently have one. Date of Admission:01/08/19 Date of Discharge: 01/09/19 Minutes to complete discharge: 35 Discharge Summary Problems reviewed: Yes Reason For Visit: FOOD INPACTION OF ESOPHAGUS, DYSPHAGIA Condition: Improved - Instructions Diet, Activity, Other Instructions: YOUR VISIT You came to the hospital because you were feeling the sensation of incomplete swallowing and difficulty eating. You were admitted to the hospital for care of this issue. You were seen by a administration assistant with no emergent need for intervention at this time. While you were admitted at the hospital you had an EKG performed which showed some abnormalities for which you should follow up as an outpatient. MEDICATIONS You were not prescribed any new medications. If you have any home medications, please continue to take them as prescribed. REFERRALS Please make an appointment to see your primary care provider 1 week from today. If you do not currently have one, you can be seen at the [facility] clinic located at [address] [place] [address]. Please call to make an appointment. If you would like to continue seeing Dr. Curt Campbell, please ask for a Monday morning appointment. Otherwise you may see any of the other providers at that location. Please make an appointment to see Dr. Paz (administration assistant) 1 week from today for follow up. Please make an appointment to see Dr. Abdiaziz Coronado (latex ribbon machine operator) 1-2 weeks from today for follow up. SPECIAL INSTRUCTIONS The administration assistant that saw you during your visit to the hospital recommended that chew your food thoroughly before swallowing. Eat slowly and swallow your food completely before taking further bites. Avoid eating excessively large portions. We advise you to eat a soft diet until you get further evaluation by the administration assistant. You will likely need an endoscopy done as an outpatient. ADDITIONAL INFORMATION Please call [phone] or come directly to the emergency department if you experience unusual headache, vision change, shortness of breath, chest pain, numbness, tingling, loss of alertness/awareness, loss of function, unusual bleeding or any alarming symptoms. Referrals: [facility] [Provider Group] - 1 Week Sal Paz DO [Staff Physician] - 1 Week Disposition: HOME - Home Medications Comprehensive Discharge Medication List: Ambulatory Orders NK [No Known Home Medication] 04/25/18 Problem List - Problems (1) Food impaction of esophagus Code(s): T18.128A - FOOD IN ESOPHAGUS CAUSING OTHER INJURY, INITIAL ENCOUNTER Qualifiers: Encounter type: initial encounter Qualified Code(s): T18.128A - Food in esophagus causing other injury, initial encounter This patient is new to me today: Yes Date on this admission: 01/09/19 Emergency Visit: No Critical Care patient: No - Discharge Referral Referred to [facility] Yes Physician Referral: Erich Paz DO (GI)
== END 2019-01-09 18:49 | disposition home or self-care (01) | DRG 395 ==
LOC: JER 18:22 → JERBED 21:58 → J5S 23:48
PROVIDERS: ADMIT Internal Medicine
DX: T18.128A Food in esophagus causing other injury, initial encounter (principal); I45.10 Unspecified right bundle-branch block; R94.31 Abnormal electrocardiogram [ECG] [EKG]; R13.19 Other dysphagia
CPT/HCPCS: 36415; 71046-TC-FY; 80048; 80053; 82248; 82550; 83735; 84100; 84484; 85025; 85027; 85610; 85730; 93005; 93010; 99285-25; J1644; J7030

== ENCOUNTER 2020-05-13 07:31 | Day surgery (SDC) | payer BC ==
[2020-05-11 11:16] VITALS: BMI 25.0
[2020-05-13] MEDS: CYCLOPENTOLATE 2% OPHTH SOLN 2 ML BOTTLE ONE ×3 (08:05→08:15)
[2020-05-13] MEDS: TROPICAMIDE 1% OPHTH SOLN 15 ML BOTTLE ONE ×3 (08:05→08:15)
[2020-05-13] MEDS: CIPROFLOXACIN 0.3% EYE DROPS 5 ML BOTTLE ONE ×3 (08:05→08:15)
[2020-05-13] MEDS: PHENYLEPHRINE 2.5% OPHTH SOLN 15 ML BOTTLE ONE ×3 (08:05→08:15)
[2020-05-13 08:08] VITALS: TEMP 98.1
[2020-05-13] MEDS ORDERED: LIDOCAINE 1% P/F 10 MG/ML VIAL ONE (09:41)
[2020-05-13] MEDS ORDERED: CARBACHOL 0.01% INTRA-OCULAR 1.5 ML VIAL ONE (09:42)
[2020-05-13] MEDS ORDERED: NEO/POLYMYX B SULF/DEXAMETH OPHTHALMIC 5ML BOTTLE ONE (09:42)
[2020-05-13] MEDS ORDERED: TETRACAINE 0.5% OPHTH SOLN 2 ML BOTTLE ONE (09:42)
[2020-05-13] MEDS ORDERED: BSS (NA/CA/MG/K) BALANCED SALT SOLUTION OPHTH SOLN 15 ML BOTTLE ONE (09:42)
[2020-05-13] MEDS ORDERED: MIDAZOLAM HCL 2 MG/2 ML SINGLE DOSE VIAL ONE (09:45)
[2020-05-13 12:31] VITALS: BP 120/64; PULSE 58
== END 2020-05-13 11:00 | disposition home or self-care (01) ==
LOC: FASU 07:31
PROVIDERS: ATTEND Ophthalmology
PROC: 08RJ3JZ Replacement of Right Lens with Synthetic Substitute, Percutaneous Approach (ICD-10-PCS; principal; 2020-05-13 10:01)
DX: H26.8 Other specified cataract (principal)